=== PATIENT | male | born 1990 | race African-American/Black ===

== ENCOUNTER 2018-02-28 15:27 | Emergency (ER) | payer BC, OTHER ==
[2018-02-28] MEDS ORDERED: Ibuprofen 800 MG TAB ONE (16:03)
== END 2018-02-28 16:15 | disposition home or self-care (01) ==
LOC: NAV ERS 15:27
DX: R51 Headache (principal); I10 Essential (primary) hypertension
CPT/HCPCS: 99283

== ENCOUNTER 2020-07-07 17:51 | Emergency (ER) | payer BC ==
[2020-07-08 20:23] LABS: SARS-CoV-2 MS2 Positive; SARS-CoV-2 N Gene Negative; SARS-CoV-2 S Gene Negative; SARS-CoV-2 by NAA Not Detected (NotDetected); SARS-CoV-2 orf1ab Negative
== END 2020-07-07 19:50 | disposition home or self-care (01) ==
LOC: NAV ERS 17:51
DX: Z20.828 Contact with and (suspected) exposure to other viral communicable diseases (principal); Z79.899 Other long term (current) drug therapy
CPT/HCPCS: 87635; 99283; U0003

== ENCOUNTER 2020-09-29 18:20 | Emergency (ER) | payer BC ==
[2020-09-30 02:38] LABS: SARS-CoV-2 PCR by NAA Not Detected (NotDetected)
== END 2020-09-29 19:05 | disposition home or self-care (01) ==
LOC: NAV ERS 18:20
DX: R05 Cough (principal); Z20.822 Contact with and (suspected) exposure to COVID-19; I10 Essential (primary) hypertension; Z79.899 Other long term (current) drug therapy
CPT/HCPCS: 87635; 99283; U0003; U0005

== ENCOUNTER 2021-03-22 08:14 | Emergency (ER) | payer BC, SELFPAY ==
[2021-03-22 17:08] LABS: SARS-CoV-2 PCR by NAA Not Detected (NotDetected)
== END 2021-03-22 09:15 | disposition home or self-care (01) ==
LOC: NAV ERS 08:14
DX: I10 Essential (primary) hypertension (principal); Z20.822 Contact with and (suspected) exposure to COVID-19
CPT/HCPCS: 99283; U0003; U0005

== ENCOUNTER 2021-11-24 05:24 | Emergency (ER) | payer OTHER, SELFPAY ==
[2021-11-24] MEDS ORDERED: Ibuprofen 200 MG TAB ONE (05:55)
== END 2021-11-24 06:10 | disposition home or self-care (01) ==
LOC: NAV ERS 05:24
DX: S93.402A Sprain of unspecified ligament of left ankle, initial encounter (principal); I10 Essential (primary) hypertension; W10.9XXA Fall (on) (from) unspecified stairs and steps, initial encounter; Y93.01 Activity, walking, marching and hiking; Z79.899 Other long term (current) drug therapy

== ENCOUNTER 2021-11-29 18:07 | Emergency (ER) | payer OTHER, SELFPAY | END 2021-11-29 18:35 | disposition home or self-care (01) | LOC: NAV ERS 18:07 | DX: S93.402A Sprain of unspecified ligament of left ankle, initial encounter (principal); I10 Essential (primary) hypertension; Z79.899 Other long term (current) drug therapy; X58.XXXA Exposure to other specified factors, initial encounter | CPT/HCPCS: 99283 ==

== ENCOUNTER 2024-07-10 21:23 | Emergency (ER) | payer SELFPAY ==
[2024-07-10] MEDS ORDERED: Oxymetazoline HCl 0.05% (30 ML BOT) ONE (21:32)
== END 2024-07-10 22:40 | disposition home or self-care (01) ==
LOC: NAV ERS 21:23
DX: R04.0 Epistaxis (principal); I10 Essential (primary) hypertension
CPT/HCPCS: 30901

== ENCOUNTER 2024-08-15 08:42 | Emergency (ER) | payer BC ==
[2024-08-15] MEDS ORDERED: Ibuprofen 200 MG TAB ONE (09:17)
== END 2024-08-15 09:57 | disposition home or self-care (01) ==
LOC: NAV ERS 08:42
DX: J02.9 Acute pharyngitis, unspecified (principal); J06.9 Acute upper respiratory infection, unspecified; R03.0 Elevated blood-pressure reading, without diagnosis of hypertension; I10 Essential (primary) hypertension; Z79.899 Other long term (current) drug therapy
CPT/HCPCS: 87081; 87428; 87430; 99283